=== PATIENT | male | born 1980 | race American Indian/Alaskan Native ===

== ENCOUNTER 2017-11-23 19:45 | Emergency (ER) | payer BC ==
[2017-11-23] MEDS ORDERED: levETIRAcetam 500 MG/100 ML PREMIX BAG ONE ×2 (20:04→20:05)
[2017-11-23 20:14] LABS: #Basophils 0.1 thou/uL (0.0-0.2); #Eosinphils 0.1 thou/uL (0.0-0.7); #Monocytes 0.7 thou/uL (0.11-0.59); %Basophils 1.2 % (0.0-1.0); %Eosinophils 1.3 % (0.0-10.0); %Lymphocytes 25.3 % (21.0-51.0); %Neutrophils 63.1 % (42.0-75.0); Hemoglobin 13.4 g/dL (14.0-18.0); Mean Corpuscular HGB CONC 35.7 g/dL (32.0-36.0); Mean Corpuscular Hemoglobin 34.7 pg (27.0-31.0); Mean Corpuscular Volume 97.2 fL (78.0-98.0); Mean Platelet Volume 7.9 fL (7.4-10.4); Platelet Count 143 thou/uL (130-400); RBC Distribution Width 12.4 % (11.5-14.5); Red Blood Cell (RBC) Count 3.86 mill/uL (4.70-6.10); White Blood Cell (WBC) Count 7.9 thou/uL (4.8-10.8)
[2017-11-23 20:34] LABS: ALT (SGPT) 49 U/L (8-55); AST (SGOT) 58 U/L (5-34); Albumin 4.2 g/dL (3.5-5.0); Alkaline Phosphatase 176 U/L (40-150); Anion Gap 17 mmol/L (10-20); BUN (Urea Nitrogen) 13 mg/dL (8.9-20.6); Bilirubin, Total 1.3 mg/dL (0.2-1.2); Calc. Creatinine Clearance 0 mL/min (70-130); Calcium 9.7 mg/dL (7.8-10.44); Carbon Dioxide 21 mmol/L (22-29); Chloride 108 mmol/L (98-107); Estimated GFR-MDRD Greater than 90; Globulin 4.6 g/dL (2.4-3.5); Glucose 163 mg/dL (70-105); Protein, Total 8.8 g/dL (6.0-8.3); Sodium 143 mmol/L (136-145)
[2017-11-23 20:37] LABS: Potassium 2.9 mmol/L (3.5-5.1)
--- NOTE | 2017-11-27 15:07 | EKG ---
Test Reason : Blood Pressure : / mmHG Vent. Rate : 098 BPM Atrial Rate : 098 BPM P-R Int : 146 ms QRS Dur : 104 ms QT Int : 376 ms P-R-T Axes : 062 -06 -04 degrees QTc Int : 480 ms Normal sinus rhythm Moderate voltage criteria for LVH, may be normal variant Abnormal ECG Confirmed by VANNA CHANDRA DO ([id number]), sound editor THAI RODRIGUES ([id number] on 11/27/2017 3:06:45 PM Referred By: Confirmed By:VANNA CHANDRA DO
== END 2017-11-23 21:15 | disposition home or self-care (01) ==
LOC: ERS 19:45
DX: R56.9 Unspecified convulsions (principal); Z91.14 Patient's other noncompliance with medication regimen; E87.6 Hypokalemia; E11.9 Type 2 diabetes mellitus without complications; Z79.84 Long term (current) use of oral hypoglycemic drugs
CPT/HCPCS: 36415; 80053; 80164; 85025; 93005; 96365; J1953

== ENCOUNTER 2018-02-22 02:33 | Emergency (ER) | payer BC, SELFPAY ==
--- NOTE | 2018-02-22 10:28 | RAD ---
LUMBAR SPINE 3 VIEWS: HISTORY: Trauma. COMPARISON: None. 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 No dilated air fluid of large or small bowel. Mild narrowing at L3-4, L4-5, and L5-S1 disk spaces. 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 POS: [facility]ISH
== END 2018-02-22 03:40 | disposition home or self-care (01) ==
LOC: ERS 02:33
DX: F10.129 Alcohol abuse with intoxication, unspecified (principal); E11.9 Type 2 diabetes mellitus without complications; Z79.84 Long term (current) use of oral hypoglycemic drugs; Z79.899 Other long term (current) drug therapy
CPT/HCPCS: 72100